=== PATIENT | female | born 2000 | race Caucasian/White ===

== ENCOUNTER → 2020-05-06 | Outpatient (CLI) | payer BC ==
[2020-05-06 15:59] LABS: ALBUMIN 4.4 GM/DL (3.2-4.5); CHLORIDE 105 MMOL/L (98-107); SODIUM 138 MMOL/L (135-145)
[2020-05-06 16:00] LABS: CALCIUM 9.6 MG/DL (8.5-10.1)
[2020-05-06 16:01] LABS: GLUCOSE 94 MG/DL (70-105); TOTAL PROTEIN 7.8 GM/DL (6.4-8.2); TRIGLYCERIDES 283 MG/DL (<150); VLDL CHOLESTEROL 57 MG/DL (5-40)
[2020-05-06 16:02] LABS: CARBON DIOXIDE 23 MMOL/L (21-32)
[2020-05-06 16:03] LABS: BILIRUBIN,TOTAL 0.3 MG/DL (0.1-1.0)
[2020-05-06 16:05] LABS: ALKALINE PHOSPHATASE 52 U/L (40-136); GFR ESTIMATED > 60
[2020-05-06 16:06] LABS: BUN/CREATININE RATIO 14; CHOLESTEROL 178 MG/DL (< 200)
[2020-05-06 16:07] LABS: HDL CHOLESTEROL 36 MG/DL (40-60)
[2020-05-06 16:08] LABS: ALANINE AMINOTRANSFERASE 18 U/L (0-55)
== END ==
LOC: LAB 15:00
PROVIDERS: ATTEND Obstetrics & Gynecology Gynecology
DX: E28.2 Polycystic ovarian syndrome (principal)
CPT/HCPCS: 36415; 80053; 80061; 83525; 84436; 84443; 86141